=== PATIENT | female | born 1980 | race African-American/Black ===

== ENCOUNTER 2016-09-11 20:13 | Emergency (ER) | payer OTHER ==
[~2016-09-11] VITALS: Ht 177.8 cm; Wt 81.6 kg
[2016-09-11 21:14] VITALS: BP 139/70
[2016-09-11] MEDS ORDERED: NAPR550T PO (21:58)
[2016-09-11] MEDS ORDERED: HYDR-971 PO (21:58)
--- NOTE | 2016-09-11 21:58 | PHYS DOC ---
Past Medical History Past Medical History: Anxiety Past Surgical History: Alcohol Use: Occasionally Drug Use: None Adult General Chief Complaint Chief Complaint: FOOT INJURY PAIN [facility] HPI Patient is a 35 year old female with complaint of right ankle and foot pain after jumping off the couch at home. Patient describes her foot rolling inward. She denies any additional injuries or concerns at this time. Patient has any previous fractures or dislocations to right ankle or right foot. She denies any history of bone forming disorders. Review of Systems Review of Systems Constitutional: Denies fever or chills [] Eyes: Denies change in visual acuity, redness, or eye pain [] HENT: Denies nasal congestion or sore throat [] Respiratory: Denies cough or shortness of breath [] Cardiovascular: No additional information not addressed in HPI [] GI: Denies abdominal pain, nausea, vomiting, bloody stools or diarrhea [] : Denies dysuria or hematuria [] Musculoskeletal: Denies back pain or joint pain [] Integument: Denies rash or skin lesions [] Neurologic: Denies headache, focal weakness or sensory changes [] Endocrine: Denies polyuria or polydipsia [] Allergies Allergies Allergies Coded Allergies Type Severity Reaction Last Updated Verified No Known Drug Allergies 07/16/15 No Physical Exam Physical Exam Constitutional: Well developed, well nourished, no acute distress, non-toxic appearance. [] HENT: Normocephalic, atraumatic, bilateral external ears normal, oropharynx moist, no oral exudates, nose normal. [] Eyes: PERRLA, EOMI, conjunctiva normal, no discharge. [] Neck: Normal range of motion, no tenderness, supple, no stridor. [] Cardiovascular:Heart rate regular rhythm, no murmur [] Lungs & Thorax: Bilateral breath sounds clear to auscultation [] Abdomen: Bowel sounds normal, soft, no tenderness, no masses, no pulsatile masses. [] Skin: Warm, dry, no erythema, no rash. [] Back: No tenderness, no CVA tenderness. [] Extremities: Patient's right knee and proximal lower leg are normal in appearance and nontender to palpation. Patient's right ankle with mild swelling about the lateral malleolus and just inferior to the lateral malleolus. There is tenderness to palpation also in this region without palpable defect, deformity, instability or crepitus. Right foot is normal in appearance. There is mild tenderness to palpation at the base of the fifth metatarsal. There is no palpable instability or crepitus. Talar tilt and anterior drawer are stable. Right foot is neurovascularly intact with capillary refill less than 2 seconds. Neurologic: Alert and oriented X 3, normal motor function, normal sensory function, no focal deficits noted. [] Psychologic: Affect normal, judgement normal, mood normal. [] Current Patient Data Vital Signs Vital Signs Date Time Temp Pulse Resp B/P Pulse Ox O2 Delivery O2 Flow Rate FiO2 09/11/16 21:14 98.7 82 18 100 Room Air 98.7 EKG EKG [] Radiology/Procedures Radiology/Procedures 3 views of patient's right ankle or right foot were performed with adequate technique. There is no evidence of acute bony injury. Course & Med Decision Making Course & Med Decision Making Patient's ankle was wrapped with an Ildefonso wrap and she was placed in an ankle air splint. Patient was fitted for crutches and given instructions on proper use crutches. Dragon Disclaimer Dragon Disclaimer This electronic medical record was generated, in whole or in part, using a voice recognition dictation system. Departure Departure Impression: Primary Impression: Right ankle sprain Disposition: 01 HOME, SELF-CARE Condition: GOOD Referrals: CAMILA HERNANDEZ (PCP) Patient Instructions: Ankle Sprain, [id number], Crutch Use, [id number] Additional Instructions: 1. X-rays of your ankle and foot today show no bony injury. 2. Take the medication as prescribed. 3. Review the discharge instructions especially for reasons to return to the emergency room. 4. Call your primary care doctor's office in the morning to schedule follow-up appointment to be reevaluated in 7-10 days. Scripts Naproxen Sodium (Anaprox Ds)550 Mg [id number] Mg PO Q12HR #20 Prov:AARON GORDON 09/11/16 Hydrocodone/Apap 5-325 (Newport 5-325 Tablet)1 Each Tablet1 Tab PO PRN Q6HRS PRN PAIN #15 TAB Prov:AARON GORDON 09/11/16 AARON GORDON Sep 11, 2016 21:58
--- NOTE | 2016-09-12 08:16 | RAD ---
Indication injury, pain. AP oblique and lateral views of the right foot were obtained. Similar, AP oblique and lateral views of the right ankle were obtained. Views of the ankle are normal. No fracture or bony abnormality is seen. Views of the foot also appear unremarkable. No bony abnormality is seen. IMPRESSION: Normal plain films of the right foot and ankle
== END 2016-09-11 22:21 | disposition home or self-care (01) ==
LOC: ER 20:13
DX: S93.401A Sprain of unspecified ligament of right ankle, initial encounter (principal); W13.8XXA Fall from, out of or through other building or structure, initial encounter; Y93.39 Activity, other involving climbing, rappelling and jumping off; Y99.8 Other external cause status; Y92.098 Other place in other non-institutional residence as the place of occurrence of the external cause
CPT/HCPCS: 29515; 73610; 73630; 99284-25